=== PATIENT | female | born 1970 | race Caucasian/White ===

== ENCOUNTER 2017-07-20 20:15 | Emergency (ER) | payer OTHER ==
[~2017-07-20 20:15] MED LIST: B COTAB7 PO; CYAN1000P IM; EPIP0.3I IM; FIORIC; OMPR20CCR PO; TAB-TAB PO; WARF1TAB PO
[2017-07-20 20:34] VITALS: BP 149/61; PULSE 105; RESP 14; TEMP 99; O2SAT 96
--- NOTE | 2017-07-20 21:38 | PD ---
HPI Chief Complaint: Injury Time Seen by Provider: 21:33 Travel History International Travel<30 days: No Contact w/Intl Traveler<30days: No Traveled to known affect area: No History of Present Illness HPI 46-year-old white female presents to emergency department with complaints of left foot pain. She states that she had struck her foot yesterday against a wall while she was in socks. Since then she has reinjured it chasing her grandchild. She states the pain is moderate. Worse with palpation. No alleviating factors. Worse with walking. PFSH Past Medical History Anemia: Yes Asthma: No Blood Disorders: No Anxiety: Yes Depression: Yes Heart Rhythm Problems: No Cancer: No High Cholesterol: No Chemotherapy: No Chest Pain: No Congestive Heart Failure: No COPD: No Diabetes: No Diminished Hearing: No Deep Vein Thrombosis: Yes Endocrine: No Gastrointestinal Disorders: Yes (RELATED TO SURGICAL INTERVENTION WITH GASTRIC BYPASS) Genitourinary: No Immune Disorder: No Musculoskeletal: Yes (HERNIATED DISC L4-5) Neurologic: No Reproductive: No Respiratory: Yes (PE) Immunizations Current: Yes Migraines: Yes Radiation Therapy: No Sleep Apnea: No Thyroid Disease: No Tetanus Vaccination: < 5 Years PNEUMOCCOCAL Vaccine (Year): 2006 ?: Not Menopausal: Yes : 3 Para: 2 Miscarriage: 1 Tubal Ligation: Yes Past Surgical History Abdominal Surgery: Yes (GASTRIC BYPASS) Cholecystectomy: Yes Hysterectomy: Yes Oral Surgery: Yes (1 WISDOM TOOTH REMOVED, DENTAL REPAIR) Other Surgery: Yes (GASTRIC BYPASS/PARTIAL HYSTERECTOMY) Social History Alcohol Use: Yes (ONCE EVERY 3 MONTHS) Tobacco Use: No Substance Use: No Allergies-Medications (Allergen,Severity, Reaction): Coded Allergies: bee venom protein (honey bee) (Unverified Allergy, Severe, Anaphylaxis, ) brompheniramine (Unverified Allergy, Severe, HIVES, 12/31/16) phenylpropanolamine (Unverified Allergy, Severe, HIVES, 12/31/16) Reported Meds & Prescriptions Reported Meds & Active Scripts Active Diclofenac Sodium DR (Diclofenac Sodium) 75 Mg Tabdr 75 Mg PO BID Reported B Complex/C (Vitamin B Complex/Vitamin C) Tab 1 Tab PO DAILY Vitamin B12 (Cyanocobalamin) 1,000 Mcg/1 Ml Inj 1,000 Mcg IM Q30D Warfarin Sodium 1 mg (Warfarin Sodium) 10 Mg Tab 10 Mg PO DAILY Epipen (Epinephrine HCl) 0.3 Mg Inj 0.3 Mg IM DIRECTED GIVE IM IN THIGH, MAY REPEAT IF NEEDED Prilosec 20 Mg Cap (Omeprazole) 20 Mg Capcr 20 Mg PO DAILY Multivitamin (Multivitamins) 1 Tab Tab 1 Tab PO DAILY Fioricet Tab (Acetaminophen/Butalbital/Caffeine) 1 Tab Tab 1 Tab .XX PRN Review of Systems Except as stated in HPI: all other systems reviewed are Neg Physical Exam Narrative GENERAL: This is a well-nourished, well-developed patient, in no apparent distress. SKIN: No rashes, ecchymoses or lesions. Warm and dry. HEAD: Atraumatic. Normocephalic. EYES: PERRL, EOMI, no discharge or injection. No scleral icterus. EARS: Clear NOSE: Nasal turbinates appear normal. THROAT: Mucosa pink and moist. Airway patent. NECK: Trachea midline. supple, moves head freely. LUNGS: Clear to auscultation. CV: Regular in rhythm. ABDOMEN: Soft nontender. EXT: Examination of left foot reveals tenderness and swelling to the little toe and distal third of the fifth metatarsal. Remainder of the foot is unremarkable. The skin is intact. She has intact sensation with good distal pulses. No pain in the heel, Achilles, ankle, knee or hip. The right lower extremity as well as upper extremities are unremarkable. Data Data Last Documented VS Vital Signs Date Time Temp Pulse Resp B/P (MAP) Pulse Ox O2 Delivery O2 Flow Rate FiO2 07/20/17 20:34 99.0 105 14 149/61 (90) 96 Orders Orders Foot, Complete (Gqw8kcg) (07/20/17 ) Ice/Cold Pack (07/20/17 22:05) Splint Or Brace Apply/Monitor (07/20/17 22:05) Crutches (07/20/17 22:05) Ibuprofen (Motrin) (07/20/17 22:15) Ed Discharge Order (07/20/17 22:05) MDM Medical Decision Making Medical Screen Exam Complete: Yes Emergency Medical Condition: Yes Medical Record Reviewed: Yes Interpretation(s) Left Foot: Negative for acute fracture. No dislocation. Differential Diagnosis MDM: High Differential diagnoses: Fracture, sprain, strain, dislocation, contusion, neurovascular injury Narrative Course X-ray is negative for bony injury. Patient given Mychal wrap, ice pack, crutches, Motrin 600 mg by mouth. Diagnosis Primary Impression: left foot contusion Patient Instructions: General Instructions Additional Instructions: Rest. Elevation. Ice packs for the next 3 days. Mychal wrap and crutches. No weight-bearing and then progress to weight-bearing as tolerated. Medications as directed Follow-up with an orthopedist or your doctor in one week. Return to the ER if any problems Med/Other Pt SpecificInfo: Prescription(s) given Scripts Diclofenac Sodium DR (Diclofenac Sodium DR) 75 Mg Tabdr 75 MG PO BID, #14 TAB 0 Refills Prov: David Young MD 07/20/17 Disposition: 01 DISCHARGE HOME Condition: Stable Boogie Cutler Jul 20, 2017 21:38
[2017-07-20] MEDS ORDERED: DICL75TA PO (22:06)
[2017-07-20] MEDS ORDERED: IBUPROFEN 600 MG TAB PO ONE (22:15)
--- NOTE | 2017-07-20 22:26 | RADRPT ---
EXAM DATE/TIME: 07/20/2017 21:13 [facility] COMPARISON: No previous studies available for comparison. INDICATIONS : Left foot pain after twisting it today. MEDICAL HISTORY : None. SURGICAL HISTORY : None. ENCOUNTER: Initial ACUITY: 1 day PAIN SCORE: 6/10 LOCATION: Left foot. FINDINGS: Three view examination of the left foot demonstrates no soft tissue swelling, dislocation, or fractur e. The tarsal bones appear intact. The interphalangeal and metatarsophalangeal joints are intact. The calcaneus is intact. Small plantar calcaneal spur. Bony mineralization is mildly decreased. CONCLUSION: No evidence of recent bony injury. Dequan Morris MD on July 20, 2017 at 22:24 Board Certified Radiologist. This report was verified electronically.
== END 2017-07-20 22:29 | disposition home or self-care (01) ==
LOC: NEPK 20:15
DX: S90.32XA Contusion of left foot, initial encounter (principal); F41.9 Anxiety disorder, unspecified; F32.9 Major depressive disorder, single episode, unspecified; W22.01XA Walked into wall, initial encounter; Z86.718 Personal history of other venous thrombosis and embolism; Z98.84 Bariatric surgery status; Z88.8 Allergy status to other drugs, medicaments and biological substances; Z79.899 Other long term (current) drug therapy; Z79.01 Long term (current) use of anticoagulants
CPT/HCPCS: 73630; 99283; E0113

== ENCOUNTER 2018-04-26 13:03 | Inpatient (IN) ==
[2018-04-26] MEDS ORDERED: Pantoprazole Inj 40 MG Vial IV.PUSH ONE (13:52)
--- NOTE | 2018-04-26 13:55 | ED ---
HPI General Chief complaint: Recheck/Abnormal Lab/Rx Stated complaint: Abnormal Labs/SOB Complaint Time Seen by Provider: 04/26/18 13:37 History of Present Illness HPI narrative: Examined in the presence of a female nurse. 47-year-old female with history of iron deficiency anemia, remote history of PE, DVT, no longer on anticoagulation, migraines, presents for evaluation. For the past 3-4 days she has been feeling tired, dyspneic, foggy, fatigued. She reports over the past 1 day she has had pain in both calves, concerned that she is developing DVTs. She had lab work performed as an outpatient 1.5 weeks ago which revealed a hemoglobin of 9.7 which is decreased from 12.83 months ago. She called the office of Dr. Oglesby, her resource management planner, and was referred to the emergency room for further evaluation. Symptoms are moderate, no relieving factors. She denies any bright red blood per rectum, melena, vaginal bleeding, hematuria, chest pain, cough, congestion, abdominal pain, fevers, chills. No other complaints. Related Data Home Medications Medication Instructions Recorded Confirmed Vitamin B-12 1,000 mcg PO DAILY 04/26/18 04/26/18 [id number]-avldxunyychqw-unix 1 cap PO Q4H PRN 04/26/18 04/26/18 [Fioricet] cholecalciferol (vitamin D3) 5,000 unit PO DAILY 04/26/18 04/26/18 [Vitamin D3] ergocalciferol (vitamin D2) 50,000 unit PO QWEEK 04/26/18 04/26/18 [Vitamin D2] gabapentin 400 mg PO TID 04/26/18 04/26/18 omeprazole 20 mg PO DAILY 04/26/18 04/26/18 oxycodone-acetaminophen [Percocet] 1 tab PO Q6H PRN 04/26/18 04/26/18 Allergies Allergy/AdvReac Type Severity Reaction Status Date / Time bee venom protein (honey bee) Allergy Severe Anaphylaxis Verified 04/26/18 14:09 brompheniramine Allergy Severe HIVES Verified 04/26/18 14:09 phenylpropanolamine Allergy Severe HIVES Verified 04/26/18 14:09 phenylephrine Allergy Hives Verified 04/26/18 14:09 [From Dimetapp Cold-Allergy (PE)] Review of Systems ROS: all other systems reviewed are negative [facility] Medical History Medical History Anemia (Acute) Herniated disc (Acute) Migraine (Acute) Chronic back pain (Acute) GERD (gastroesophageal reflux disease) (Acute) Surgical History Surgical History Previous back surgery (Acute) Hx of cholecystectomy (Acute) Hx of gastric bypass (Acute) Social History Social History Substance History: No History of Abuse Second Hand Smoke Exposure: No Smoking Status: Never smoker How Often Do You Have a Drink Containing Alcohol: Never Recent Travel in [facility] within the Last 8 Weeks: No Recent Out of Country Travel within the Last 8 Weeks: No Exam Narrative Exam Narrative: GENERAL: Well-developed well-nourished female no acute distress SKIN: Warm and dry. HEAD: Atraumatic. Normocephalic. EYES: Pupils equal and round. No scleral icterus. No injection or drainage. ENT: No nasal bleeding or discharge. Mucous membranes pink and moist. NECK: Trachea midline. No JVD. CARDIOVASCULAR: Regular rate and rhythm. No murmur appreciated. RESPIRATORY: No accessory muscle use. Clear to auscultation. Breath sounds equal bilaterally. GASTROINTESTINAL: Abdomen soft, non-tender, nondistended. Hepatic and splenic margins not palpable. Rectal examination reveals light brown stool which is Hemoccult positive. MUSCULOSKELETAL: No obvious deformities. There is tenderness to palpation of bilateral calves. There is no lower extremity edema. There is no cording. NEUROLOGICAL: Awake and alert. No obvious cranial nerve deficits. Motor grossly within normal limits. Normal speech. Procedures Hemaprompt Stool Procedural Steps Taken: specimen placed in appropriate test area, developer placed on specimen and control areas and controls appropriately positive and negative Hemaprompt Stool Result: positive Course Initial Documented Vital Signs Temperature 98.1 F 04/26/18 13:23 Pulse Rate 89 04/26/18 13:23 Respiratory Rate 17 04/26/18 13:23 Blood Pressure 118/67 04/26/18 13:23 Pulse Oximetry 98 04/26/18 13:23 Last Documented Vital Signs Temperature 98.6 F 04/26/18 17:21 Pulse Rate 89 04/26/18 17:21 Respiratory Rate 16 04/26/18 17:21 Blood Pressure 111/57 L 04/26/18 17:21 Pulse Oximetry 100 04/26/18 17:21 Medical Decision Making BETTY Attestation BETTY supervised visit: Yes Attestation: Dr. Mendy Rainey, have reviewed the advance practice practitioner' s documentation and am in agreement, met with the patient face to face, made the diagnosis, and the medical decision making was done by me. The patient was initially evaluated by pipo montero. Please see their complete history and physical. *My assessment and Findings: The patient presents with generalized weakness During the course of the patient's emergency department visit, the patient's history, examination, and differential diagnosis were reviewed with the patient. The patient was placed on a pvc monitor with oximetry and frequent blood pressure monitoring. The patient had [peripheral] IV access obtained and blood work sent for analysis. The patient's laboratory studies were reviewed and remarkable for [-]. Radiology studies were reviewed and remarkable for [-] MDM Narrative Medical decision making narrative: Patient was placed on ECG monitor and pulse oximetry. Twelve-lead EKG obtained. Lab work, lower extremity ultrasound, CT pulmonary angiogram ordered. Lab work is been reviewed. Hemoglobin is 9.4, otherwise lab work is reassuring. Protein corrected calcium within normal limits. Ultrasound reveals no evidence of DVT. She did have positive Hemoccult card with light brown stool. Reassuringly she reports that she had a normal colonoscopy in November of this year by assistant scientist Dr. Mccoy. I discussed with the patient's resource management planner Dr. Oglesby because she is symptomatic he recommends transfusion of 1 unit of blood and she can follow-up in his office. The CTPA results have now arrived and she does have multiple right-sided small PEs. There is no comparison on record. I discussed this with Dr. Oglesby and, given that the patient does have a positive Hemoccult, he would recommend starting her on heparin and admitting her for close observation. I discussed with Dr. Vidal Medical Screen Exam Complete: Yes Emergency Medical Condition: Yes Differential Diagnosis Differential Diagnosis: Acute on chronic anemia, GI bleed, DVT, PE Lab Data Result diagrams: 04/26/18 13:50 04/26/18 13:50 Lab Results 04/26/18 04/26/18 04/26/18 Range/Units 13:50 13:50 13:50 WBC 11.8 H (4.0-11.0) th/mm3 RBC 3.59 L (4.00-5.30) mil/mm3 Hgb 9.4 L (11.6-15.3) gm/dL Hct 30.0 L (35.0-46.0) % MCV 83.7 (80.0-100.0) fL MCH 26.3 L (27.0-34.0) pg MCHC 31.4 L (32.0-36.0) % RDW 16.8 (11.6-17.2) % Plt Count 432 (150-450) th/mm3 MPV 8.3 (7.0-11.0) fL Neut % (Auto) 72.0 H (16.0-70.0) % Lymph % (Auto) 18.6 (9.0-44.0) % [place] % (Auto) 4.8 (0.0-8.0) % Eos % (Auto) 3.9 (0.0-4.0) % Baso % (Auto) 0.7 (0.0-2.0) % Neut # (Auto) 8.5 H (1.8-7.7) th/mm3 Lymph # (Auto) 2.2 (1.0-4.8) th/mm3 [place] # (Auto) 0.6 (0.0-0.9) th/mm3 Eos # (Auto) 0.5 H (0.0-0.4) th/mm3 Baso # (Auto) 0.1 (0.0-0.2) th/mm3 WBC Differential . Differential Comment Auto diff final PT 9.3 L (9.8-11.6) sec INR 0.9 Ratio APTT 21.4 L (23.4-31.7) sec Sodium 141 (136-145) meq/L Potassium 4.4 (3.5-5.1) meq/L Chloride 112 H (98-107) meq/L Carbon Dioxide 20.0 L (21.0-32.0) meq/L Anion Gap 9 (5-15) meq/L BUN 15 (7-18) mg/dL Creatinine 0.57 (0.50-1.00) mg/dL Estimated GFR Greater than 89 (>89) mL/min Random Glucose 87 (74-106) mg/dL Calcium 7.3 L* (8.5-10.1) mg/dL Calcium Adj for Albumin 8.5 (8.5-10.1) mg/dL Total Bilirubin Less than 0.1 L (0.2-1.0) mg/dL AST 14 L (15-37) U/L ALT 35 (10-53) U/L Alkaline Phosphatase 168 H (45-117) U/L Total Creatine Kinase 161 (26-192) U/L CK-MB (CK-2) Less than 1.0 (0.5-3.6) ng/mL Troponin I Less than 0.02 L (0.02-0.05) ng/mL Total Protein 5.8 L (6.4-8.2) g/dL Albumin 2.5 L (3.4-5.0) g/dL Blood Type Blood Type Recheck Antibody Screen MTS Gel Crossmatch 04/26/18 04/26/18 Range/Units 14:46 16:09 WBC (4.0-11.0) th/mm3 RBC (4.00-5.30) mil/mm3 Hgb (11.6-15.3) gm/dL Hct (35.0-46.0) % MCV (80.0-100.0) fL MCH (27.0-34.0) pg MCHC (32.0-36.0) % RDW (11.6-17.2) % Plt Count (150-450) th/mm3 MPV (7.0-11.0) fL Neut % (Auto) (16.0-70.0) % Lymph % (Auto) (9.0-44.0) % [place] % (Auto) (0.0-8.0) % Eos % (Auto) (0.0-4.0) % Baso % (Auto) (0.0-2.0) % Neut # (Auto) (1.8-7.7) th/mm3 Lymph # (Auto) (1.0-4.8) th/mm3 [place] # (Auto) (0.0-0.9) th/mm3 Eos # (Auto) (0.0-0.4) th/mm3 Baso # (Auto) (0.0-0.2) th/mm3 WBC Differential Differential Comment PT (9.8-11.6) sec INR Ratio APTT (23.4-31.7) sec Sodium (136-145) meq/L Potassium (3.5-5.1) meq/L Chloride (98-107) meq/L Carbon Dioxide (21.0-32.0) meq/L Anion Gap (5-15) meq/L BUN (7-18) mg/dL Creatinine (0.50-1.00) mg/dL Estimated GFR (>89) mL/min Random Glucose (74-106) mg/dL Calcium (8.5-10.1) mg/dL Calcium Adj for Albumin (8.5-10.1) mg/dL Total Bilirubin (0.2-1.0) mg/dL AST (15-37) U/L ALT (10-53) U/L Alkaline Phosphatase (45-117) U/L Total Creatine Kinase (26-192) U/L CK-MB (CK-2) (0.5-3.6) ng/mL Troponin I (0.02-0.05) ng/mL Total Protein (6.4-8.2) g/dL Albumin (3.4-5.0) g/dL Blood Type A Positive Blood Type Recheck Required Antibody Screen Negative MTS Gel Crossmatch See Detail Imaging Data Radiologist's impression: Chest CTA 04/26/18 13:51 CONCLUSION: 1. Stable small pulmonary emboli involving the right upper lobe and right lower lobe pulmonary arteries. Venous Doppler Study 04/26/18 13:51 CONCLUSION: 1. Negative exam with no evidence of deep venous thrombosis. Discharge Plan Discharge Disposition Patient Disposition: ED Admit(ED Internal Use Only) Discharge Condition Condition: Stable Discharge Order Discharge Orders: ED Use Only Admit Order (Routine); Ordered 04/26/18 Ordered By: Pipo Montero Discharge Details Diagnosis: Pulmonary embolism, Fatigue, Heme positive stool Physicians Team ED Provider: Ramiro Brooke ED Midlevel Provider: Pipo Montero Primary Care Provider: UNKNOWN, Rxs /Orders / Referrals /Forms Prescriptions: No Action gabapentin 400 mg Capsule 400 mg PO TID RF: 0 oxycodone-acetaminophen [Percocet] 10-325 mg Tablet 1 tab PO Q6H PRN (Reason: Pain) RF: 0 omeprazole 20 mg Capsule,Delayed Release(Dr/Ec) 20 mg PO DAILY RF: 0 uetvnvvjwt-nusceriflriir-nbxg [Fioricet] 50-300-40 mg Capsule 1 cap PO Q4H PRN (Reason: Migraine Headache) RF: 0 cholecalciferol (vitamin D3) [Vitamin D3] 5,000 unit Tablet 5,000 unit PO DAILY RF: 0 ergocalciferol (vitamin D2) [Vitamin D2] 50,000 unit Capsule 50,000 unit PO QWEEK RF: 0 Vitamin B-12 1,000 mcg PO DAILY RF: 0 Discharge Interventions Interventions: Vital Signs Last Done: 04/26/18 16:00 Status ED Status: With Doctor
[2018-04-26 14:06] LABS: Baso # (Auto) 0.1 th/mm3 (0.0-0.2); Baso % (Auto) 0.7 % (0.0-2.0); Eos # (Auto) 0.5 th/mm3 (0.0-0.4); Eos % (Auto) 3.9 % (0.0-4.0); Hemoglobin 9.4 gm/dL (11.6-15.3); Lymph # (Auto) 2.2 th/mm3 (1.0-4.8); Lymph % (Auto) 18.6 % (9.0-44.0); Mean Corpuscular HGB Conc 31.4 % (32.0-36.0); Mean Corpuscular Hemoglobin 26.3 pg (27.0-34.0); Mean Corpuscular Volume 83.7 fL (80.0-100.0); Mean Platelet Volume 8.3 fL (7.0-11.0); Mono # (Auto) 0.6 th/mm3 (0.0-0.9); Mono % (Auto) 4.8 % (0.0-8.0); Neut # (Auto) 8.5 th/mm3 (1.8-7.7); Platelet Count 432 th/mm3 (150-450); Red Blood Count 3.59 mil/mm3 (4.00-5.30); Red Cell Distribution Width 16.8 % (11.6-17.2); White Blood Count 11.8 th/mm3 (4.0-11.0)
[2018-04-26 14:18] LABS: Activated Partial Thrombo Time 21.4 sec (23.4-31.7); INR 0.9 Ratio; Prothrombin Time 9.3 sec (9.8-11.6)
--- NOTE | 2018-04-26 14:29 | US ---
EXAM DATE: 04/26/2018 2:25 PM EST AGE/SEX: 47 years / Female INDICATIONS: Bilateral leg swelling. CLINICAL DATA: This is the patient's subsequent encounter. Patient reports that signs and symptoms h ave been present for 1 week and indicates a pain score of 2/10. MEDICAL/SURGICAL HISTORY: Gastroesophageal reflux disease. Chronic back pain. Cholecystectomy. Gastric bypass. COMPARISON: [facility] – [place] LEFT VENOUS DOPPLER, 08/13/2015. . TECHNIQUE: Venous ultrasound of both lower extremities was performed from the inguinal ligament to t he proximal calf. Real-time, color Doppler and spectral tracing, compression and augmentation techni ques were used. FINDINGS: Right Leg: Normal compression of the deep venous system from the inguinal region to the proximal carter f. No echogenic clot is seen. Normal response of the venous system to augmentation and respiration. Left Leg: Normal compression of the deep venous system from the inguinal region to the proximal calf . No echogenic clot is seen. Normal response of the venous system to augmentation and respiration. Other: None. CONCLUSION: 1. Negative exam with no evidence of deep venous thrombosis. Electronically signed by: Randy Elizabeth MD 04/26/2018 2:28 PM EST
[2018-04-26 14:31] LABS: Alanine Aminotransferase 35 U/L (10-53); Albumin 2.5 g/dL (3.4-5.0); Alkaline Phosphatase 168 U/L (45-117); Anion Gap 9 meq/L (5-15); Aspartate Aminotransferase 14 U/L (15-37); Blood Urea Nitrogen 15 mg/dL (7-18); Calcium 7.3 mg/dL (8.5-10.1); Chloride 112 meq/L (98-107); Creatine Kinase 161 U/L (26-192); Glomerular Filtration Rate Greater Than 89 mL/min (>89); Glucose,Random 87 mg/dL (74-106); Potassium 4.4 meq/L (3.5-5.1); Sodium 141 meq/L (136-145); Total Protein 5.8 g/dL (6.4-8.2)
[2018-04-26] MEDS ORDERED: Sodium Chlor 0.9% Inj 250 ML IV.SIG SCH (17:00)
--- NOTE | 2018-04-26 17:19 | CT ---
EXAM DATE: 04/26/2018 5:13 PM EST AGE/SEX: 47 years / Female INDICATIONS: Shortness of breath chest pain CLINICAL DATA: This is the patient's initial encounter. Patient reports that signs and symptoms have been present for 1 day and indicates a pain score of 7/10. MEDICAL/SURGICAL HISTORY: Anemia. Pulmonary embolism Cholecystectomy. Gastric bypass. Hysterect joseline. RADIATION DOSE: 13.19 CTDI (mGy) COMPARISON: No prior exams available for comparison. TECHNIQUE: Volumetric scanning was performed using a multi-row detector CT scanner during bolus infu cara of 55 ml Omnipaque 350 (iohexol) nonionic water-soluble contrast as a single exam dose. The danna a was post processed with a variety of visualization algorithms including full volume maximum intensi ty projection and sliding thin slab reformation. Using automated exposure control and adjustment of t he mA and/or kV according to patient size, radiation dose was kept as low as reasonably achievable to obtain optimal diagnostic quality images. DICOM format image data is available electronically for r eview and comparison. FINDINGS: Pulmonary Arteries: The main pulmonary artery and right left branch vessels are intact. There are mu ltiple small pulmonary emboli involving the right upper lobe and right lower lobe pulmonary arteries. The left and right pulmonary arteries are normal in diameter. Lung: No infiltrates seen. Effusion: None. Mediastinum: No evidence of mediastinal or hilar adenopathy. Other: The axilla is unremarkable. CONCLUSION: 1. Stable small pulmonary emboli involving the right upper lobe and right lower lobe pulmonary arter ies. Electronically signed by: Randy Elizabeth MD 04/26/2018 5:17 PM EST
[2018-04-26] MEDS ORDERED: Heparin 10,000 UNITS/10 ML Vial (for IV use) IV.PUSH STA (17:49)
[2018-04-26] MEDS ORDERED: BUTALBITAL ACETAMINOPHEN CAFF PO PRN (18:56)
[2018-04-26] MEDS ORDERED: Acetaminophen 325 MG Tablet PO PRN (19:16)
[2018-04-26] MEDS: Heparin Drip 25,000 UNIT/250 ML BAG IV.CONT PRN (19:27)
--- NOTE | 2018-04-26 19:43 | P.HPIM ---
History of Present Illness Primary Care Physician: UNKNOWN History of Present Illness: Pt is 47 yo woman with hx dvt/bilateral pe's unprovoked in 2016. She has gastric bypass and long hx of b12 and iron def anemia. Pt was initially managed back in 2016 with coumadin but was unable to get stable therapeutic levels. she was eventually converted to eliquis and according to the pt and she was taken off less than 1 yr ago by her batcher operator. Pt reports a "negative" cta chest at [facility] around the time she stopped the eliquis. She has had recent drop in Hgb to 9 from 12 3months ago. She had c scope in November and "negative". Pt came more sob and weak stating this was her usual anemia symptoms. Also some leg cramps. u/s lower ext neg for dvt but cta tonight showed "stable right upper and right lower small pe's. Pt was started on heparin gtt and 1 unit blood. Her press assistant notified. PMH: dvt/pe's 2016. negative hypercoag w/up. unprovoked gastric bypass lap boone emelia/bso remove "sz" migraines iron def anemia/iron transfusions gerd RFA of her back SH: no tobacco FH: NC Diagnosis (1) Symptomatic anemia: (2) Pulmonary embolism: Inpatient Certification Inpatient Certification: I certify that the inpatient services were ordered in accordance with Medicare regulations governing the order. This includes certification that hospital inpatient services are reasonable and necessary and in the case of services not specified as inpatient-only under 42 CFR 419.22(n), that they are appropriately provided as inpatient services in accordance to with the 2-midnight benchmark under 43 CFR 412.3(e) Estimated Total Length of Stay (Days): 2 Plans for Post Hospital Care: Home Medications and Allergies Allergies Allergy/AdvReac Type Severity Reaction Status Date / Time bee venom protein (honey bee) Allergy Severe Anaphylaxis Verified 04/26/18 14:09 brompheniramine Allergy Severe HIVES Verified 04/26/18 14:09 phenylpropanolamine Allergy Severe HIVES Verified 04/26/18 14:09 phenylephrine Allergy Hives Verified 04/26/18 14:09 [From Dimetapp Cold-Allergy (PE)] Home Medications Medication Instructions Recorded Confirmed Type Vitamin B-12 1,000 mcg PO DAILY 04/26/18 04/26/18 History quifxfnepr-wedqkjhwghtun-uvzc 1 cap PO Q4H PRN 04/26/18 04/26/18 History [Fioricet] cholecalciferol (vitamin D3) 5,000 unit PO DAILY 04/26/18 04/26/18 History [Vitamin D3] ergocalciferol (vitamin D2) 50,000 unit PO QWEEK 04/26/18 04/26/18 History [Vitamin D2] gabapentin 400 mg PO TID 04/26/18 04/26/18 History omeprazole 20 mg PO DAILY 04/26/18 04/26/18 History oxycodone-acetaminophen [Percocet] 1 tab PO Q6H PRN 04/26/18 04/26/18 History Active Medications: Active Medications Acetaminophen (Tylenol) 650 mg PO Q4H PRN PRN Reason: Temp > 100.4 Acetaminophen/Butalbital/Caffeine (Fioricet 50-325-40) 1 tab PO Q4H PRN PRN Reason: MIGRAINE HEADACHE Cyanocobalamin (Vitamin B12) 1,000 mcg PO DAILY PATSY Gabapentin (Neurontin) 400 mg PO TID PATSY Sodium Chloride (Ns Inj) 250 mls @ 15 mls/hr IV.SIG ONCE PATSY Stop: 04/27/18 09:39 Last Admin: 04/26/18 17:00 Dose: 15 mls/hr Heparin Sodium/Dextrose (Heparin/D5w 25,000 U/250 Ml) 25,000 unit in 250 mls @ 0 mls/hr IV.CONT TITRATE PRN; Protocol PRN Reason: Per Protocol Last Admin: 04/26/18 19:27 Dose: 1,500 units/hr, 15 mls/hr Ondansetron HCl (Zofran Inj) 4 mg IV.PUSH Q6H PRN PRN Reason: NAUSEA OR VOMITING Oxycodone/Acetaminophen (Percocet 10/325 Mg) 1 tab PO Q6H PATSY Pantoprazole Sodium (Protonix) 20 mg PO DAILY PATSY Sodium Chloride (Ns Flush) 2 ml IV.FLUSH BID PATSY Sodium Chloride (Ns Flush) 2 ml IV.FLUSH PRN PRN PRN Reason: FLUSH AFTER USING IV ACCESS Vitamin D (Vitamin D3) 5,000 unit PO DAILY PATSY Physical Exam Vital signs: Last Vital Signs Temp 98.6 F 04/26/18 17:21 Pulse 88 04/26/18 19:17 Resp 16 04/26/18 19:17 BP 109/59 L 04/26/18 19:17 Pulse Ox 97 04/26/18 19:17 Narrative: heart reg lung cta abd s/nt ext no edema Results Labs CBC & Chem 7: 04/28/18 04:43 04/26/18 13:50 Caprini VTE Risk Assessment Caprini VTE Risk Assessment: Moderate/High Risk (score >= 2) Caprini Risk Assessment Model: Point Value = 1 Point Value = 2 Point Value = 3 Point Value = 5 Age 41-60 Minor surgery BMI > 25 kg/m2 Swollen legs Varicose veins or History of unexplained or recurrent spontaneous Oral contraceptives or hormone replacement Sepsis (< 1 month) Serious lung disease, including pneumonia (< 1 month) Abnormal pulmonary function Acute myocardial infarction Congestive heart failure (< 1 month) History of inflammatory bowel disease Medical patient at bed rest Age 61-74 Arthroscopic surgery Major open surgery (> 45 min) Laparoscopic surgery (> 45 min) Malignancy Confined to bed (> 72 hours) Immobilizing plaster cast Central venous access Age >= 75 History of VTE Family history of VTE Factor V Leiden Prothrombin [id number] Lupus anticoagulant Anticardiolipin antibodies Elevated serum homocysteine Heparin-induced thrombocytopenia Other congenital or acquired thrombophilia Stroke (< 1 month) Elective arthroplasty Hip, pelvis, or leg fracture Acute spinal cord injury (< 1 month) Prophylaxis Regimen: Total Risk Factor Score Risk Level Prophylaxis Regimen 0-1 Low Early ambulation 2 Moderate Order ONE of the following: *Sequential Compression Device (SCD) *Heparin 5000 units SQ BID 3-4 Higher Order ONE of the following medications: *Heparin 5000 units SQ TID *Enoxaparin/Lovenox 40 mg SQ daily (WT < 150 kg, CrCl > 30 mL/min) *Enoxaparin/Lovenox 30 mg SQ daily (WT < 150 kg, CrCl > 10-29 mL/min) *Enoxaparin/Lovenox 30 mg SQ BID (WT < 150 kg, CrCl > 30 mL/min) AND/OR *Sequential Compression Device (SCD) 5 or more Highest Order ONE of the following medications: *Heparin 5000 units SQ TID (Preferred with Epidurals) *Enoxaparin/Lovenox 40 mg SQ daily (WT < 150 kg, CrCl > 30 mL/min) *Enoxaparin/Lovenox 30 mg SQ daily (WT < 150 kg, CrCl > 10-29 mL/min) *Enoxaparin/Lovenox 30 mg SQ BID (WT < 150 kg, CrCl > 30 mL/min) AND *Sequential Compression Device (SCD) Assessment and Plan Assessment (1) Symptomatic anemia: Code(s): D64.9 - Anemia, unspecified Status: Acute (2) Pulmonary embolism: Code(s): I26.99 - Other pulmonary embolism without acute cor pulmonale Status: Acute Plan 1. symptomatic anemia 2. hx dvt/pe unprovoked 2015. off anticoagulation less 1yr cta today with right lung small PE"s. 3. long hx iron def anemia/b12 def. 4. hx gastric bypass ED notified her press assistant plan to give 1 unit of blood will ask for iron panel. venofer iron if needed. heme positive stool may have been related to her oral iron. heparin initiation recommended per her press assistant. will clarify her last CT from [facility] as it is unclear when today's CTA was compared. (pt reported a "negative CT chest this yr with no PE's) home meds. _ (1) Pulmonary embolism Qualifiers: Acute cor pulmonale presence: Chronicity: Pulmonary embolism type:
[2018-04-26] MEDS: oxyCODONE/Acetaminophen 10/325 Tablet PO SCH (20:04)
[2018-04-26] MEDS: Gabapentin 400 MG Capsule PO SCH (20:04)
[2018-04-26 21:19] LABS: Prothrombin Time 10.1 sec (9.8-11.6)
[2018-04-26] MEDS: Butalbital/APAP/Caff 50/325/40 MG Tablet PO PRN (21:34)
[2018-04-26 21:45] LABS: Activated Partial Thrombo Time 166.9 sec (23.4-31.7)
[2018-04-26] MEDS: Iron Sucrose Inj 200 MG in Sodium Chlor 0.9% Inj 100 ML IV.SIG SCH (22:08)
[2018-04-27] MEDS: oxyCODONE/Acetaminophen 10/325 Tablet PO SCH ×4 (00:53→18:00)
[2018-04-27 07:39] LABS: Hematocrit 29.3 % (35.0-46.0); Hemoglobin 9.2 gm/dL (11.6-15.3); Mean Corpuscular HGB Conc 31.4 % (32.0-36.0); Mean Corpuscular Hemoglobin 26.6 pg (27.0-34.0); Mean Corpuscular Volume 84.8 fL (80.0-100.0); Mean Platelet Volume 8.4 fL (7.0-11.0); Platelet Count 382 th/mm3 (150-450); Red Blood Count 3.45 mil/mm3 (4.00-5.30); Red Cell Distribution Width 16.7 % (11.6-17.2); White Blood Count 9.3 th/mm3 (4.0-11.0)
[2018-04-27 07:40] LABS: Baso % (Auto) 0.5 % (0.0-2.0); Eos # (Auto) 0.4 th/mm3 (0.0-0.4); Hematocrit 29.1 % (35.0-46.0); Hemoglobin 9.2 gm/dL (11.6-15.3); Lymph # (Auto) 1.7 th/mm3 (1.0-4.8); Mean Corpuscular HGB Conc 31.7 % (32.0-36.0); Mean Corpuscular Hemoglobin 26.9 pg (27.0-34.0); Mean Corpuscular Volume 84.7 fL (80.0-100.0); Mean Platelet Volume 8.4 fL (7.0-11.0); Mono # (Auto) 0.5 th/mm3 (0.0-0.9); Mono % (Auto) 5.6 % (0.0-8.0); Neut # (Auto) 6.7 th/mm3 (1.8-7.7); Neut % (Auto) 71.9 % (16.0-70.0); Platelet Count 382 th/mm3 (150-450); Red Blood Count 3.44 mil/mm3 (4.00-5.30); Red Cell Distribution Width 16.4 % (11.6-17.2); White Blood Count 9.3 th/mm3 (4.0-11.0)
[2018-04-27] MEDS: Pantoprazole Sodium 20 MG DR Tablet PO SCH (08:08)
[2018-04-27] MEDS: Gabapentin 400 MG Capsule PO SCH ×3 (08:08→17:59)
[2018-04-27] MEDS: Butalbital/APAP/Caff 50/325/40 MG Tablet PO PRN ×3 (08:08→21:25)
[2018-04-27] MEDS: Iron Sucrose Inj 200 MG in Sodium Chlor 0.9% Inj 100 ML IV.SIG SCH (08:22)
[2018-04-27] MEDS ORDERED: VITAMIN B12 1000 MCG PO SCH (09:00)
[2018-04-27] MEDS ORDERED: Non-Formulary Drug (Cholecalciferol (Vitamin D3) [Vitamin D3] 5,000 UNIT) PO SCH (09:00)
--- NOTE | 2018-04-27 09:13 | P.PNIM ---
Subjective Interval history: Patient reports she feel a little worse today continues to feel fatigued Physical Exam Vital signs: Last Vital Signs Temp 98.1 F 04/27/18 08:00 Pulse 80 04/27/18 08:00 Resp 18 04/27/18 08:00 BP 112/67 04/27/18 08:00 Pulse Ox 95 04/27/18 08:00 Narrative: heart reg lung cta abd s/nt ext no edema Results Labs CBC & Chem 7: 04/27/18 06:24 04/26/18 13:50 Assessment and Plan Assessment (1) Symptomatic anemia: Code(s): D64.9 - Anemia, unspecified Status: Acute (2) Pulmonary embolism: Code(s): I26.99 - Other pulmonary embolism without acute cor pulmonale Status: Acute Plan 1. symptomatic anemia 2. hx dvt/pe unprovoked 2016. off anticoagulation less 1yr cta today with right lung small PE"s. 3. long hx iron def anemia/b12 def. 4. hx gastric bypass ED notified her news reel cameraman S/P 1 unit of PRBC hgb on admission 9.4 -> 9.2 (04/27) recheck CBC in AM Iron panel reviewed Iron 15, TIBC 372, % saturation 4, Ferritin 3 venofer x 3 bags heme positive stool may have been related to her oral iron. heparin initiation recommended per her news reel cameraman. September 26 CT[facility] at [facility] was negative for PE per Dr. Oglesby Plan to DC on Eliquis Dr. Vidal also discussed with Dr. Oglesby that patient may benefit from outpatient IV Iron infusions will defer additional PRBCs to Dr. Oglesby continue home meds as indicated _ (1) Pulmonary embolism Qualifiers: Acute cor pulmonale presence: Chronicity: Pulmonary embolism type:
--- NOTE | 2018-04-27 09:26 | ECG ---
Date Performed: 04/26/2018 Time Performed: 14:42:48 PTAGE: 47 years EKG: Sinus rhythm WITH SHORT NE INTERVAL BORDERLINE ECG INTERPRETATION BASED ON A DEFAULT AGE OF 42 YEARS PREVIOUS TRACING : 08/13/2015 14.24 DOCTOR: Stephane Milton Interpretating Date/Time 04/27/2018 09:25:55
--- NOTE | 2018-04-27 19:27 | MB ---
cc: Mic Oglesby MD DATE: 04/27/2018 ATTENDING PHYSICIAN: Gustabo Vidal MD REASON FOR CONSULTATION: Hematology was consulted to render an opinion regarding a patient with a history of anemia, admitted with a recurrent pulmonary embolism. HISTORY OF PRESENT ILLNESS: The patient is a 47-year-old female with a history of iron deficiency anemia as well as a thromboembolic events who presented to the hospital with complaints of increased weakness and dyspnea on exertion. She had a history of bilateral lower extremity deep venous thromboses with a pulmonary embolism in July 2015. She was initially treated with Coumadin, but difficult to titrate and was switched to Eliquis. The Eliquis was stopped by her storm window installer less than a year ago. She also has a history of anemia due to iron deficiency and was receiving iron infusions periodically. The last time I saw her in the clinic was more than a year and a half ago. At that time, she was still taking the Eliquis. She stated she was doing well until this past Thursday when she started having increased fatigue and malaise. By Thursday, she was more conscious about her breathing. Her symptoms were progressively getting worse and her brought her to the emergency room yesterday. She denies any fever or chills. She denies any weight loss or night sweats. She was having some chest tightness yesterday. She denies any nausea or vomiting. She denies any abdominal pain or diarrhea. She denies any melena or hematochezia. She denies any dysuria or hematuria. She has been taking ferrous sulfate twice a day. On presentation, she had a CT angiogram which showed a small pulmonary embolism in the right lung. The patient was started on heparin. She also found to be more anemic with a hemoglobin of 9.2. She stated that her hemoglobin was 12.8 about 3 months ago. PAST MEDICAL HISTORY: 1. Iron deficiency anemia. 2. B12 deficiency. 3. Bilateral lower extremity deep venous thromboses with pulmonary embolism in 2015. 4. Gastroesophageal reflux disease. 5. Anxiety. 6. Seizure disorder. 7. Migraine headaches. 8. Chronic back pain. PAST SURGICAL HISTORY: 1. Gastric bypass surgery in 2004. 2. EGD and colonoscopy by Dr. Mccoy in November 2017 which were negative. 3. Laparoscopic cholecystectomy. 4. ARMIN/BSO. 5. Radiofrequency ablation of the back. SOCIAL HISTORY: Denies any tobacco or alcohol use. FAMILY HISTORY: No family history of thromboembolic events. ASSESSMENT: 1. Recurrent pulmonary embolism. She has a history of right lower extremity deep venous thrombosis and bilateral pulmonary embolism around 07/2015. She initially was given Coumadin, but difficult to titrate and was switched to Eliquis. A hypercoagulable workup showed a low protein C level, but it was due to Coumadin. She also had compound heterozygous MTHFR mutation, but her homocysteine level was normal and doubt that it was the cause of her thrombosis. She has no family history of thromboembolic events. Due to her unprovoked blood clot at that time, I told her she had a high risk of developing recurrent clots if she stopped anticoagulation. The patient reportedly had 2 CT angiograms recently which did not show any pulmonary embolism and the Eliquis was stopped about a year ago. I reviewed her records at [facility] and she had CTs of the chest done on 09/26/2017 and in November 2016 which did not show any pulmonary embolism. She now presented with generalized weakness, chest tightness and mild shortness of breath. CT angiogram showed small pulmonary emboli involving the right upper lobe and right lower lobe pulmonary arteries. This appeared to be new given her last 2 CTs were negative for pulmonary embolism. She also had a Doppler which did not show any lower extremity venous thrombosis. She was started on heparin. Given that this is a recurrent blood clot, I told her she will need to stay on anticoagulation for life. I recommend transitioning her to Eliquis tomorrow if there is no evidence of bleeding. 2. Anemia. She has history of iron deficiency and B12 deficiency anemia. She has a history of gastric bypass surgery and has poor absorption. She just had esophagogastroduodenoscopy and colonoscopy done by Dr. Mccoy in November which reportedly were negative. She denies any gross gastrointestinal bleed. Her hemoglobin reportedly was 12.8 three months ago when she saw her primary physician. She presented to the hospital with a hemoglobin of 9.2. Iron studies showed severe iron deficiency with a ferritin of 3. She was given 1 unit of packed red blood cell transfusion. She was also started on a Venofer infusion. I told her she needs to follow up at the hematology clinic as she likely is going to need periodic iron infusions given her history of poor absorption. She voices understanding. 3. Chronic back pain. Stable. 4. History of B12 deficiency. She is on supplements. 5. History of migraine headaches and seizure. She has no symptoms. PLAN: 1. Continue heparin and consider transitioning her to Eliquis tomorrow if she has no signs of bleeding. 2. Continue Venofer infusion. 3. Monitor CBC. 4. I have discussed with Dr. Vidal. Thank you, Dr. Vidal, for asking me to see this patient. MD RADHA Lazo/pam , 05:12 PM , 05:30 PM
[2018-04-27] MEDS: Heparin Drip 25,000 UNIT/250 ML BAG IV.CONT PRN (21:16)
[2018-04-28] MEDS: oxyCODONE/Acetaminophen 10/325 Tablet PO SCH ×3 (01:56→13:39)
[2018-04-28 05:16] LABS: Hematocrit 29.3 % (35.0-46.0); Hemoglobin 9.4 gm/dL (11.6-15.3); Mean Corpuscular HGB Conc 32.1 % (32.0-36.0); Mean Corpuscular Hemoglobin 27.2 pg (27.0-34.0); Mean Corpuscular Volume 84.6 fL (80.0-100.0); Mean Platelet Volume 8.4 fL (7.0-11.0); Platelet Count 359 th/mm3 (150-450); Red Blood Count 3.46 mil/mm3 (4.00-5.30); Red Cell Distribution Width 16.1 % (11.6-17.2); White Blood Count 9.1 th/mm3 (4.0-11.0)
--- NOTE | 2018-04-28 07:56 | P.PNONC ---
Subjective Interval history: Patient denies any chest pain. She has no significant shortness of breath. She is little anxious. She denies any lower extremity tenderness. She denies any bleeding. She is tolerating Venofer well. Objective Vital Signs/Intake & Output: Vital Signs 04/27/18 08:00 04/27/18 12:00 04/27/18 16:00 Temperature 98.1 F 98.8 F 98.7 F Pulse Rate 80 98 H 102 H Respiratory Rate 18 20 22 Blood Pressure 112/67 119/65 117/72 Pulse Oximetry 95 96 92 L 04/27/18 20:00 04/28/18 00:00 04/28/18 04:00 Temperature 98.7 F 98.5 F Pulse Rate 100 H 100 H 88 Respiratory Rate 18 18 18 Blood Pressure 108/57 L 104/53 L 104/56 L Pulse Oximetry 96 93 L 94 L Intake & Output 04/27/18 04/28/18 04/28/18 18:59 06:59 18:59 Intake Total 360 / 360 250 / 250 Balance 360 / 360 250 / 250 Intake: IV 360 / 360 250 / 250 Heparin/D5W 25,000 U/250 mL 25, 250 / 250 000 unit In 250 ml @ Per Protocol IV.CONT TITRATE PRN Rx #:[id number] Venofer Inj 200 MG In NS Inj 110 / 110 100 ML @ 110 mls/hr IV.SIG DAILY PATSY Rx#:[id number] NS Inj 250 ML @ 15 mls/hr IV. 250 / 250 SIG ONCE PATSY Rx#:[id number] Other: # Voids 5 2 Date of Last Bowel Movement 04/27/18 Result Diagrams: 04/28/18 04:43 04/26/18 13:50 Laboratory Results: Laboratory Results - last 24 hr 04/27/18 04/28/18 04/28/18 13:18 04:43 04:43 WBC 9.1 RBC 3.46 L Hgb 9.4 L Hct 29.3 L MCV 84.6 MCH 27.2 MCHC 32.1 RDW 16.1 Plt Count 359 MPV 8.4 APTT 61.2 H D 53.2 H Medications: Active Medications Generic Name Dose Route Start Last Admin Trade Name Freq PRN Reason Stop Dose Admin Acetaminophen/Butalbital/Caffeine 1 tab 04/26/18 19:12 04/27/18 21:25 Fioricet 50-325-40 PO 1 tab Q4H PRN Administration MIGRAINE HEADACHE Cyanocobalamin 1,000 mcg 04/27/18 09:00 04/27/18 08:09 Vitamin B12 PO 1,000 mcg DAILY PATSY Administration Gabapentin 400 mg 04/26/18 19:00 04/27/18 17:59 Neurontin PO 400 mg TID PATSY Administration Heparin Sodium/Dextrose 25,000 unit in 250 mls @ 0 mls/hr 04/26/18 17:49 05/04 06:04 Heparin/D5w 25,000 U/250 Ml IV.CONT 11 units/hr TITRATE PRN 0.11 mls/hr Per Protocol Titration Protocol Per Protocol Iron Sucrose 200 mg/ Sodium 110 mls @ 110 mls/hr 04/26/18 20:56 04/27/18 09: 44 Chloride IV.SIG 04/28/18 09:59 Infused DAILY PATSY Infusion Oxycodone/Acetaminophen 1 tab 04/26/18 19:00 04/28/18 01:56 Percocet 10/325 Mg PO 1 tab Q6H PATSY Administration Pantoprazole Sodium 20 mg 04/27/18 09:00 04/27/18 08:08 Protonix PO 20 mg DAILY PATSY Administration Sodium Chloride 2 ml 04/26/18 21:00 04/28/18 00:11 Ns Flush IV.FLUSH Not Given BID PATSY Vitamin D 5,000 unit 04/27/18 09:00 04/27/18 08:09 Vitamin D3 PO 5,000 unit DAILY PATSY Administration Objective Remarks: GENERAL: Well-nourished, well-developed patient. SKIN: Warm and dry. Pale. HEAD: Normocephalic. EYES: No scleral icterus. No injection or drainage. NECK: Supple, trachea midline. No JVD or lymphadenopathy. LYMPHATIC: No adenopathy. CARDIOVASCULAR: Regular rate and rhythm without murmurs. RESPIRATORY: Breath sounds equal bilaterally. No accessory muscle use. GASTROINTESTINAL: Abdomen soft, non-tender, nondistended. EXTREMITIES: No cyanosis, or edema. MUSCULOSKELETAL: Adequate muscle tone. NEUROLOGICAL: No obvious focal deficit. Awake, alert, and oriented x3. PSYCHIATRIC: Appropriate mood and affect; insight and judgment normal. Slightly anxious. Assessment/Plan - Plan 1. Recurrent pulmonary embolism. She has a history of right lower extremity deep venous thrombosis and bilateral pulmonary embolism around 07/2015. She initially was given Coumadin, but difficult to titrate and was switched to Eliquis. A hypercoagulable workup showed a low protein C level, but it was due to Coumadin. She also had compound heterozygous MTHFR mutation, but her homocysteine level was normal and doubt that it was the cause of her thrombosis. She has no family history of thromboembolic events. She stopped Eliquis a year ago. She now presented with generalized weakness, chest tightness and mild shortness of breath. CT angiogram showed small pulmonary emboli involving the right upper lobe and right lower lobe pulmonary arteries. This appeared to be new given her last 2 CTs were negative for pulmonary embolism. She also had a Doppler which did not show any lower extremity venous thrombosis. She was started on heparin. April 28: She is tolerating heparin well. She has no evidence of bleeding. Hemoglobin stable. Given that this is a recurrent blood clot, I told her she will need to stay on anticoagulation for life. I recommend transitioning her to Eliquis today with loading dose for 7 days and then Taper down to 5 mg twice daily. 2. Anemia. She has history of iron deficiency and B12 deficiency anemia. She has a history of gastric bypass surgery and has poor absorption. She just had esophagogastroduodenoscopy and colonoscopy done by Dr. Mccoy in November which reportedly were negative. She denies any gross gastrointestinal bleed. Her hemoglobin reportedly was 12.8 three months ago when she saw her primary physician. She presented to the hospital with a hemoglobin of 9.2. Iron studies showed severe iron deficiency with a ferritin of 3. She was given 1 unit of packed red blood cell transfusion. She was also started on a Venofer infusion. April 28: She is tolerating Venofer well. Hemoglobin up to 9.4. She received another dose of Venofer this morning. I told her she needs to follow up at the hematology clinic for periodic iron infusion. PLAN: 1. Transition to Eliquis and stop heparin today. 2. She received a dose of Venofer infusion this morning. 3. Follow-up hematology clinic after discharge. Patient can be discharged From hematology standpoint he remains stable. 4. I have discussed with Dr. Vidal.
--- NOTE | 2018-04-28 08:00 | P.PNIM ---
Physical Exam Vital signs: Last Vital Signs Temp 98.5 F 04/28/18 04:00 Pulse 88 04/28/18 04:00 Resp 18 04/28/18 04:00 BP 104/56 L 04/28/18 04:00 Pulse Ox 94 L 04/28/18 04:00 Narrative: heart reg lung cta abd s/nt ext no edema Results Labs CBC & Chem 7: 04/28/18 04:43 04/26/18 13:50 Assessment and Plan Assessment (1) Symptomatic anemia: Code(s): D64.9 - Anemia, unspecified Status: Acute (2) Pulmonary embolism: Code(s): I26.99 - Other pulmonary embolism without acute cor pulmonale Status: Acute Plan Recurrent pulmonary embolism. Hx of right lower extremity deep venous thrombosis and bilateral pulmonary embolism in 07/2015. - Pt presented with generalized weakness, chest tightness and mild shortness of breath. - CT angiogram showed small pulmonary emboli involving the right upper lobe and right lower lobe pulmonary arteries. - Doppler which did not show any lower extremity venous thrombosis. - She was started on heparin. No evidence of bleeding. Pt was given 1 unit of PRBCs and Hgistable. - Heme/Onc is following. - Given that this is a recurrent blood clot, pt will need to stay on anticoagulation for life. - Pt will be transitioned to Eliquis 10mg BID today with loading dose for 7 days and then taper down to 5 mg twice daily. Anemia Hx of iron deficiency and B12 deficiency anemia s/p gastric bypass surgery and has poor absorption - Pt recently had EGD/colonoscopy done by Dr. Mccoy in November which was reportedly were negative. - No noted gross gastrointestinal bleed. - Her hemoglobin reportedly was 12.8 three months ago when she saw her primary physician. She presented to the hospital with a hemoglobin of 9.2. - Pt was noted to have heme positive stool which may have been related to her oral iron. - Iron studies showed severe iron deficiency with a ferritin of 3. She was given 1 unit of PRBCs and was started on a Venofer infusion. - Repeat labs on 04/28 with Hgb 9.4. - Pt will need to follow up with Hematology for periodic iron infusion. Discharge Planning: Patient examined. Assessment and plan formulated with Kristen Estrada PA-C. I agree with the above. iron def anemia. due to gastric bypass s/p 1 unit blood and 3 bags venofer. right recurrent pe's. dc on eliquis indefinitley spoke wth dr Chew. she will f/u in his office and for iron infusions. _ (1) Pulmonary embolism Qualifiers: Acute cor pulmonale presence: Chronicity: Pulmonary embolism type:
[2018-04-28] MEDS: Pantoprazole Sodium 20 MG DR Tablet PO SCH (08:44)
[2018-04-28] MEDS: Gabapentin 400 MG Capsule PO SCH ×2 (08:44→13:39)
[2018-04-28 09:16] VITALS: RESP 16
[2018-04-28] MEDS: Iron Sucrose Inj 200 MG in Sodium Chlor 0.9% Inj 100 ML IV.SIG SCH (10:31)
[2018-04-28] MEDS: Butalbital/APAP/Caff 50/325/40 MG Tablet PO PRN (12:21)
[2018-04-28 13:25] VITALS: BP 123/51; PULSE 86; TEMP 97.9; O2SAT 97
== END 2018-04-28 02:40 | disposition home or self-care (01) ==
LOC: NEPE 13:03 → NEDA 13:03 → NEPFCDU 19:50
PROVIDERS: ADMIT Hospitalist; ATTEND Hospitalist
DX: M79.662 Pain in left lower leg; Z79.01 Long term (current) use of anticoagulants; K21.9 Gastro-esophageal reflux disease without esophagitis; Z98.84 Bariatric surgery status; D51.9 Vitamin B12 deficiency anemia, unspecified; M54.9 Dorsalgia, unspecified; Z86.718 Personal history of other venous thrombosis and embolism; R53.83 Other fatigue; I26.09 Other pulmonary embolism with acute cor pulmonale; R25.2 Cramp and spasm; Z90.49 Acquired absence of other specified parts of digestive tract; T45.515A Adverse effect of anticoagulants, initial encounter; G89.29 Other chronic pain; R19.5 Other fecal abnormalities; Z86.711 Personal history of pulmonary embolism; M79.661 Pain in right lower leg; D50.9 Iron deficiency anemia, unspecified